=== PATIENT | female | born 1990 | race Caucasian/White ===

== ENCOUNTER 2016-12-20 06:06 | Inpatient (IN) | payer OTHER ==
[2016-12-20] VITALS (38 sets, daily range): BP systolic 63–145; BP diastolic 51–104; PULSE 70–183; RESP 18; TEMP 97.7–98.5
[2016-12-20] MEDS: LACTATED RINGER'S 1000 ML INJ 1,000 ML IV SCH ×2 (07:00→23:09)
[2016-12-20] MEDS ORDERED: LACTATED RINGER'S 1000 ML INJ 1,000 ML IV PRN (07:09)
[2016-12-20] MEDS ORDERED: MINERAL OIL 10 ML VIAL TOPICAL PRN (07:15)
[2016-12-20] MEDS ORDERED: LIDOCAINE HCL 1% 50 ML VIAL INFIL PRN (07:15)
[2016-12-20] MEDS ORDERED: LIDOCAINE HCL 1% 50 ML VIAL I-DERMAL PRN (07:15)
[2016-12-20] MEDS ORDERED: CITRIC ACID-SODIUM CITRATE LIQ 30 ML UDC PO SCH (07:15)
[2016-12-20] MEDS ORDERED: OXYTOCIN 30 UNITS-500ML PREMIX 500 ML IV ONE (07:15)
[2016-12-20] MEDS ORDERED: SODIUM CHLORID 0.9% 500 ML INJ 500 ML IV PRN (07:15)
[2016-12-20] MEDS ORDERED: SODIUM CHLOR 0.9% 1000 ML INJ 1,000 ML IV PRN (07:29)
[2016-12-20 07:35] LABS: AUTOMATED NEUTROPHIL # 11.5 TH/MM3 (1.8-7.7); BASOPHIL # 0.1 TH/MM3 (0-0.2); BASOPHIL % 0.5 % (0.0-2.0); EOSINOPHIL % 0.3 % (0.0-4.0); HEMATOCRIT 38.2 % (35.0-46.0); LYMPH % 9.9 % (9.0-44.0); LYMPHOCYTE # 1.4 TH/MM3 (1.0-4.8); MEAN CELL VOLUME 90.7 FL (80.0-100.0); MEAN CORPUSCULAR HEMOGLOBIN 29.7 PG (27.0-34.0); MEAN CORPUSCULAR HGB CONC 32.8 % (32.0-36.0); MONO % 7.1 % (0.0-8.0); NEUT % 82.2 % (16.0-70.0); PLATELET COUNT 181 TH/MM3 (150-450); RED BLOOD COUNT 4.21 MIL/MM3 (4.00-5.30); RED CELL DISTRIBUTION WIDTH 15.5 % (11.6-17.2)
[2016-12-20 07:39] LABS: HEMO FLAGS AUTO DIFF
[2016-12-20] MEDS ORDERED: fentaNYL 2MCG-BUPIV 0.125% INJ 100 ML ONE (07:52)
[2016-12-20] MEDS ORDERED: ePHEDrine/NS 25 MG/5 ML SYR ONE (08:05)
[2016-12-20 08:30] LABS: METAMYELOCYTES 3 % (0-1); MYELOCYTES 4 % (0-0); NEUTROPHIL # MANUAL DIFF 12.2 TH/MM3 (1.8-7.7); PLATELET ESTIMATE SMEAR NORMAL (NORMAL); PLATELET MORPHOLOGY NORMAL (NORMAL); POLYS (SEG NEUTROPHILS) 80 % (16-70); SCAN/DIFF FINAL DIFF MANUAL; WBC DIFF SAMPLE 100
--- NOTE | 2016-12-20 09:16 | MH ---
cc: VINCENT PALACIOS DATE OF ADMISSION: 12/20/2016 ADMISSION DIAGNOSIS Term , early labor. HISTORY OF PRESENT ILLNESS This is a 26-year-old white female, para 0-1-0-1 with LMP of 03/07/2016, EDC of 12/12/2016 by dates, 12/21/2016 by early ultrasound. Her preop course has been benign. Her labs were normal. Strep culture negative. The patient admitted with labor this morning at 3 cm and now requests epidural. PAST MEDICAL HISTORY/PREVIOUS SURGERY None. ILLNESSES History of renal stones and anxiety. ALLERGIES PENICILLIN AND SULFA. TRANSFUSIONS None. OBSTETRICAL HISTORY Vaginal delivery 2014 at 36-37 weeks. SOCIAL HISTORY She is . She is a RN, currently homemaker. Alcohol, tobacco, drugs none. PHYSICAL EXAMINATION GENERAL: This is a well-nourished, well-developed white female. VITAL SIGNS: Stable. HEENT: Exam is normal. CHEST: Chest is clear. HEART: Regular rate. ABDOMEN: Gravid. EFW is about 3200 grams. Cervix is 3 cm posterior. ASSESSMENT/PLAN She is now admitted for delivery, post epidural, will do AROM and possible pitocin if needed. MD LARRY Pack/MARI /8:46 AM /8:57 AM EMI
[2016-12-20] MEDS ORDERED: OXYTOCIN 30 UNITS/NS 500ML PREMIX IV SCH (09:45)
[2016-12-20] MEDS ORDERED: ONDANSETRON ODT 4 MG TAB PO PRN (11:00)
[2016-12-20] MEDS ORDERED: ALUMINUM/MAGNESIUM/SIMETH 30 ML CUP PO PRN (11:00)
[2016-12-20] MEDS ORDERED: BENZOCAINE 20% TOPICAL SPRAY 60 ML CAN TOPICAL PRN (11:00)
[2016-12-20] MEDS ORDERED: DO NOT ADMINISTER ANTICOAGULANTS PRN (11:00)
[2016-12-20] MEDS ORDERED: oxyCODONE/ACETAMINOPHEN 5 MG/325 MG TAB PO PRN ×2 (11:00)
[2016-12-20] MEDS ORDERED: WITCH HAZEL 50%/GLYCERIN 12.5% 40 PAD JAR TOPICAL PRN (11:00)
[2016-12-20] MEDS ORDERED: fentaNYL 2MCG-BUPIV 0.125% 100 ML EPIDURAL SCH (11:00)
[2016-12-20] MEDS ORDERED: SODIUM CHLORIDE 0.9% FLUSH 10 ML FLUSH IV FLUSH PRN (11:00)
[2016-12-20] MEDS ORDERED: ePHEDrine/NS 25 MG/5 ML SYR IV PRN (11:00)
[2016-12-20] MEDS ORDERED: NO SYSTEM NARCOTICS PRN (11:00)
[2016-12-20] MEDS ORDERED: DIPHTH/TETANUS/ACEL PERTUSSIS (BOOSTER) 0.5 ML VIAL/PFS IM ONE (16:00)
[2016-12-20] MEDS ORDERED: MEASLES, MUMPS, RUBELLA VACCINE 0.5 ML VIAL SQ ONE (16:00)
[2016-12-20] MEDS: IBUPROFEN 600 MG TAB PO PRN ×2 (16:08→23:04)
[2016-12-20] MEDS: PHENAZOPYRIDINE HCL 200 MG TAB PO SCH (17:57)
[2016-12-20] MEDS ORDERED: ZOLPIDEM TARTRATE 5 MG TAB PO PRN (21:00)
[2016-12-20] MEDS ORDERED: SODIUM CHLORIDE 0.9% FLUSH 10 ML FLUSH IV FLUSH SCH (21:00)
[2016-12-20 21:09] LABS: BLOOD, URINE LARGE (NEG); COMMENT (UR) CULTURE INDICATED; CULTURE IF INDICATED CULTURE INDICATED; GLUCOSE,URINE NEG (NEG); KETONE, URINE NEG (NEG); NITRITE,URINE NEG (NEG)
[2016-12-20 21:10] LABS: URINE COLOR LIGHT-RED (YELLW/STRAW)
[2016-12-20] MEDS: DOCUSATE SODIUM 50 MG/SENNA 8.6 MG TAB PO PRN (23:03)
[2016-12-20] MEDS: ACETAMINOPHEN 325 MG TAB PO PRN (23:04)
[2016-12-21] MEDS: ACETAMINOPHEN 325 MG TAB PO PRN ×2 (05:43→12:16)
[2016-12-21] MEDS: IBUPROFEN 600 MG TAB PO PRN ×2 (05:43→12:15)
[2016-12-21 05:58] LABS: BASOPHIL % 0.3 % (0.0-2.0); EOSINOPHIL # 0.1 TH/MM3 (0-0.4); EOSINOPHIL % 1.1 % (0.0-4.0); HEMATOCRIT 36.4 % (35.0-46.0); LYMPH % 13.3 % (9.0-44.0); LYMPHOCYTE # 1.6 TH/MM3 (1.0-4.8); MEAN CELL VOLUME 91.5 FL (80.0-100.0); MEAN CORPUSCULAR HEMOGLOBIN 30.1 PG (27.0-34.0); MEAN CORPUSCULAR HGB CONC 32.9 % (32.0-36.0); MONO % 9.3 % (0.0-8.0); PLATELET COUNT 154 TH/MM3 (150-450); RED BLOOD COUNT 3.98 MIL/MM3 (4.00-5.30); WHITE BLOOD COUNT 11.8 TH/MM3 (4.0-11.0)
[2016-12-21 06:28] LABS: HEMO FLAGS AUTO DIFF
[2016-12-21] MEDS: LACTATED RINGER'S 1000 ML INJ 1,000 ML IV SCH (07:09)
[2016-12-21] MEDS ORDERED: OXYC1TAB63 PO (08:33)
--- NOTE | 2016-12-21 08:33 | HHI.DCPOC ---
Discharge Care Plan Report Symptoms to Your Doctor -Temperate above 100.5 degrees -Redness, of incision or excessive or foul smelling drainage -Unusual pain or calf pain -Increased vaginal bleeding -Painful or difficulty urinating -Feelings of extreme sadness or anxiety after 2 weeks Goals to Promote Your Health * To prevent worsening of your condition and complications * To maintain your health at the optimal level Directions to Meet Your Goals Take your medications as prescribed Follow your dietary instruction Follow activity as directed Ensure plenty of rest for recovery Drink fluids for hydration Keep your appointments as scheduled Take your immunizations and boosters as scheduled If your symptoms worsen call your PCP, if no PCP go to Urgent Care Center or Emergency Room Smoking is Dangerous to Your Health. Avoid second hand smoke Call the 24-hour crisis hotline for domestic abuse at Luis Palumbo MD Dec 21, 2016 08:33
[2016-12-21 08:56] LABS: BANDS 15 % (0-6); MYELOCYTES 2 % (0-0); NEUTROPHIL # MANUAL DIFF 9.4 TH/MM3 (1.8-7.7); POLYS (SEG NEUTROPHILS) 63 % (16-70); WBC DIFF SAMPLE 100
[2016-12-21 08:57] LABS: PLATELET ESTIMATE SMEAR NORMAL (NORMAL); PLATELET MORPHOLOGY NORMAL (NORMAL); SCAN/DIFF FINAL DIFF MANUAL
[2016-12-21] MEDS: PHENAZOPYRIDINE HCL 200 MG TAB PO SCH (09:58)
[2016-12-21] MEDS: DOCUSATE SODIUM 50 MG/SENNA 8.6 MG TAB PO PRN (12:13)
--- NOTE | 2016-12-28 07:45 | MD ---
cc: VINCENT PALACIOS ADMISSION DATE: 12/20/2016 DISCHARGE DATE: 12/21/2016 ADMISSION DIAGNOSIS Term , early labor. DISCHARGE DIAGNOSIS Term , early labor, delivered. HISTORY OF PRESENT ILLNESS The patient is a 26-year-old white female para 0-1-0-1 with an EDC of 12/21/2016 by early ultrasound. Her course was benign. She required progesterone support in the first trimester. Her labs include Rh-positive, VDRL nonreactive, rubella immune, HAA negative, Pap negative, glucose screen normal. Strep culture negative. HOSPITAL COURSE She was admitted on the morning of 12/20/2016. She received epidural anesthesia, Pitocin augmentation and progressed to a spontaneous vaginal delivery over a small secondary tear midline, a viable female, Apgars 9 and 9, weight 7 pounds, 2 ounces. The baby's name was Jessi. She was breast-feeding, did well, was discharged home in excellent condition on 12/21/2016. DISCHARGE INSTRUCTIONS She was advised NPV, light activity. Return to see me in 6 weeks, call for abnormal pain, bleeding, temperature, or signs of depression. DISCHARGE MEDICATIONS She was given prescription for Percocet 5 one p.o. q.4 hours p.r.n. pain, #20. MD LARRY Pack/CHANTEL /8:41 AM /7:11 AM
== END 2016-12-21 13:46 | disposition home or self-care (01) | DRG 775 ==
LOC: HOBED 06:11 → H2EA 07:13 → H1EA 13:28
PROVIDERS: ADMIT Obstetrics & Gynecology; ATTEND Obstetrics & Gynecology
PROC: 10E0XZZ Delivery of Products of Conception, External Approach (ICD-10-PCS; principal; 2016-12-20)
PROC: 0KQM0ZZ Repair Perineum Muscle, Open Approach (ICD-10-PCS; 2016-12-20)
PROC: 00HU33Z Insertion of Infusion Device into Spinal Canal, Percutaneous Approach (ICD-10-PCS; 2016-12-20)
DX: O60.23X1 Term delivery with preterm labor, third trimester, fetus 1 (principal); O70.1 Second degree perineal laceration during delivery; Z37.0 Single live birth; Z3A.39 39 weeks gestation of pregnancy
CPT/HCPCS: 81001; 85007; 85027; 86900; 86901; 87086; 99285; J2590; J7120